=== PATIENT | female | born 1955 | race Two or more races ===

== ENCOUNTER 2022-03-28 11:24 | Emergency (ER) | payer OTHER, MEDICAID ==
[~2022-03-28] VITALS: Ht 157.5 cm; Wt 104.0 kg
[2022-03-28 11:35] VITALS: BP 160/90
== END 2022-03-28 13:57 | disposition home or self-care (01) ==
LOC: EDBD 11:24 → ER 11:24
DX: R56.9 Unspecified convulsions (principal); Z90.49 Acquired absence of other specified parts of digestive tract